=== PATIENT | female | born 1960 | race American Indian/Alaskan Native ===

== ENCOUNTER 2016-12-02 15:26 | Emergency (ER) | payer SELFPAY ==
[2016-12-02 15:26] VITALS: BMI 25.4
[2016-12-02 15:34] VITALS: TEMP 98
--- NOTE | 2016-12-02 16:12 | C.PDOC ---
History Of Present Illness 56 year old patient, with a past medical history of hypertension, presents to the ED complaining of elevated blood pressure. Patient states "I feel it in my throat." Patient was diagnosed with hypertension 6 months ago. Her medication has been changed 3 times and notes her doctor is still trying to find what works. She admits to not always being complaint with her medications. Patient reports taking her medication today at noon. Patient denies chest pain, shortness of breath, nausea, vomiting, abdominal pain, light headedness, dizziness, numbness or weakness. Time Seen by Provider: 12/02/16 15:43 Chief Complaint (Nursing): High Blood Pressure History Per: Patient History/Exam Limitations: no limitations Onset/Duration Of Symptoms: Other Current Symptoms Are (Timing): Still Present Severity: None Pain Scale Rating Of: 0 Exacerbating Factor(s): Pos: Recently Missed Doses Of Medication Recent travel outside of the [place]: No Past Medical History Reviewed: Historical Data, Nursing Documentation, Vital Signs Vital Signs: Last Vital Signs Temp 98.0 F 12/02/16 15:30 Pulse 54 L 12/02/16 17:53 Resp 16 12/02/16 17:53 BP 155/110 H 12/02/16 17:53 Pulse Ox 100 12/02/16 21:41 - Medical History PMH: HTN Family History: States: Unknown Family Hx - Social History Hx Tobacco Use: Yes Hx Alcohol Use: Yes (occasional) Hx Substance Use: No - Immunization History Hx Tetanus Toxoid Vaccination: No Hx Influenza Vaccination: No Hx Pneumococcal Vaccination: No Review Of Systems Except As Marked, All Systems Reviewed And Found Negative. Cardiovascular: Negative for: Chest Pain, Light Headedness Respiratory: Negative for: Shortness of Breath Gastrointestinal: Negative for: Nausea, Vomiting, Abdominal Pain Neurological: Negative for: Weakness, Numbness, Dizziness Physical Exam - Physical Exam Appears: Non-toxic, No Acute Distress Skin: Warm, Dry Head: Atraumatic, Normacephalic Eye(s): bilateral: Normal Inspection, EOMI Nose: Normal Oral Mucosa: Moist Throat: Normal, No Erythema, No Exudate Neck: Normal ROM, Supple Chest: Symmetrical, No Tenderness Cardiovascular: Rhythm Regular Respiratory: Normal Breath Sounds, No Accessory Muscle Use Gastrointestinal/Abdominal: Soft, No Tenderness Back: Normal Inspection Extremity: Normal ROM Neurological/Psych: Oriented x3, Normal Speech, Normal Cognition, Normal Cranial Nerves (2-12 grossly intact), Normal Motor, Normal Sensation Gait: Steady ED Course And Treatment O2 Sat by Pulse Oximetry: 100 (room air) Pulse Ox Interpretation: Normal Progress Note: Plan: -Metoprolol Tartrate. On reassessment, patient is resting comfortably, and is in no acute distress. Patient's vitals are improving. Case discussed with Dr. Hogan who is aware of the plan and agrees with discharge. Pt notes she feels well and will f/u with her doctor tomorrow.Instructed to Return if symptoms persist or worsen. Disposition - Disposition Disposition: HOME/ ROUTINE Disposition Time: 15:49 Condition: GOOD Additional Instructions: Follow up with your primary medical doctor or clinic in 2-5 days for further evaluation. Take medications as prescribed. Return to the emergency department at any time if symptoms persist or worsen. Prescriptions: Lopressor Hct 50 mg PO DAILY 7 Days Instructions: Chronic Hypertension (ED) - Clinical Impression Clinical Impression: Chronic hypertension - PA / MEDICATION MANAGER / Resident Statement MD/DO has reviewed & agrees with the documentation as recorded. - Scribe Statement The provider has reviewed the documentation as recorded by the Scribe Margret Ralph All medical record entries made by the Scribe were at my direction and personally dictated by me. I have reviewed the chart and agree that the record accurately reflects my personal performance of the history, physical exam, medical decision making, and the department course for this patient. I have also personally directed, reviewed, and agree with the discharge instructions and disposition.
[2016-12-02 17:14] VITALS: RESP 16
[2016-12-02 17:56] VITALS: BP 155/110; PULSE 54
[2016-12-02 20:23] VITALS: O2SAT 100
== END 2016-12-02 17:53 | disposition home or self-care (01) ==
LOC: C.ER 15:26
DX: I10 Essential (primary) hypertension (principal)